=== PATIENT | male | born 1965 | race Caucasian/White ===

== ENCOUNTER → 2018-04-23 | Outpatient (CLI) | payer BC ==
[~2018-04-23] MED LIST: None per pt
== END | disposition home or self-care (01) ==
LOC: STAR 13:44
PROVIDERS: ATTEND Internal Medicine
DX: Z02.9 Encounter for administrative examinations, unspecified (principal)

== ENCOUNTER 2018-04-29 07:12 | Day surgery (SDC) | payer BC ==
[~2018-04-29] VITALS: Ht 190.5 cm; Wt 101.0 kg
[2018-04-29] MEDS ORDERED: LACTATED RINGERS 1,000 ML IV SCH (08:04)
[2018-04-29] MEDS ORDERED: PROPOFOL 10 MG/ML, 50ML ONE (08:38)
[2018-04-29] MEDS ORDERED: ALBUTEROL SULFATE 2.5 MG/3 ML ONE (10:03)
[2018-04-29] MEDS ORDERED: MORPHINE SULFATE 4 MG/ML, 1ML IVPush PRN (10:30)
[2018-04-29] MEDS ORDERED: hydrALAzine 20 MG/ML, 1ML IV PRN (10:30)
[2018-04-29] MEDS ORDERED: MEPERIDINE/PF 25MG/0.5ML IVPush PRN (10:30)
[2018-04-29] MEDS ORDERED: LABETALOL 5MG/ML, 20ML IV PRN (10:30)
[2018-04-29] MEDS ORDERED: OXYcodone 5 MG/5 ML ORAL.SOL UDC PO PRN (10:30)
[2018-04-29] MEDS ORDERED: ACETAMINOPHEN 325 MG TABLET PO PRN (10:30)
[2018-04-29] MEDS ORDERED: MIDAZOLAM 1 MG/ML, 2ML IV PRN (10:30)
[2018-04-29] MEDS ORDERED: ONDANSETRON 2MG/ML, 2ML IV PRN (10:30)
[2018-04-29] MEDS ORDERED: FENTANYL PF 100 MCG/2ML IV PRN (10:30)
[2018-04-29] MEDS ORDERED: ALBUTEROL SULFATE 2.5 MG/3 ML NPPB PRN (10:30)
== END 2018-04-29 11:30 | disposition home or self-care (01) ==
LOC: OUT 07:12
PROVIDERS: ATTEND Internal Medicine
DX: Z09 Encounter for follow-up examination after completed treatment for conditions other than malignant neoplasm (principal); K57.30 Diverticulosis of large intestine without perforation or abscess without bleeding; K63.3 Ulcer of intestine; Z86.010 Personal history of colon polyps
CPT/HCPCS: 45380; 88305; 94640; J2704; J7120